=== PATIENT | female | born 2000 | race Caucasian/White ===

== ENCOUNTER 2020-06-07 00:07 | Emergency (ER) | payer SELFPAY ==
--- OUTSIDE RECORDS SUMMARY | 2020-06-07 00:09 | XMS REPORT | Continuity of Care Document ---
:2000 Author Organization [facility] t Address Formerly [facility] Edmund Reico [address] [place] [id number] Care Team Providers Name Role Phone DEMETRIO GALO Attending Clinician Unavailable Problems This patient has no known problems. Allergies, Adverse Reactions, Alerts This patient has no known allergies or adverse reactions. Medications This patient has no known medications. Procedures This patient has no known procedures. Results Test Description Test Time Test Comments Results Result Comments Source Chemistry 2018-03-16 14:02:00 Test Item Value Reference Range Interpretation Comme nts Chemistry (test code = NA-T) 137 mmol/L 138-145 L Chemistry (test code = K-T) 4.4 mmol/L 3.5-5.1 N Chemistry (test code = CL) 106 mmol/L 98-107 N Chemistry (test code = CO2) 22 mmol/L 22-29 N Chemistry (test code = ANGP) 13 mmol/L 10-20 N Chemistry (test code = BUN) 10 mg/dL 8.4-21.0 N Chemistry (test code = CREATT) 0.78 mg/dL 0.6-1.1 N Chemistry (test code = GLU-T) 100 mg/dL 70-105 N Chemistry (test code = CA) 9.6 mg/dL 7.8-10.44 N Chemistry (test code = TBILI) 0.5 mg/dL 0.2-1.2 N Chemistry (test code = TP) 8.0 g/dL 6.0-8.3 N Chemistry (test code = ALB) 4.6 g/dL 3.5-5.0 N Chemistry (test code = GLOB) 3.4 g/dL 2.4-3.5 N Chemistry (test code = AG) 1.4 g/dL 1.2-2.2 N Chemistry (test code = ALP) 54 U/L 40-150 N Chemistry (test code = AST) 18 U/L 5-30 N Chemistry (test code = ALT) 13 U/L 8-55 N [id number] 14:02:00 Test Item Value Reference Range Interpretation Comments Chemistry (test code = LIP) 20 U/L 8-78 N [id number] 13:59:00 Test Item Value Reference Range Interpretation Comments Urinalysis (test code = YELLOW Yellow UACLR) Urinalysis (test code = CLEAR Clear UACLY) Urinalysis (test code = 1.014 1.002-1.036 N SPGR) Urinalysis (test code = 8.0 5.0-9.0 N CARLOS) Urinalysis (test code = Trace Negative A UALEU) Urinalysis (test code = Negative Negative UANIT) Urinalysis (test code = 30 mg/dL Neg-Trace A PROUADIP) Urinalysis (test code = Negative mg/dL Negative GLUCU) Urinalysis (test code = Negative mg/dL Negative KETU) Urinalysis (test code = 0.2 mg/dL 0.2-1.0 UAUROB) Urinalysis (test code = Negative Negative UABIL) Urinalysis (test code = Large Negative A UABLD) Urinalysis (test code = GREATER THAN 50-TNTC 0-3 A UARBC) HPF Urinalysis (test code = None Seen HPF 0-3 UAWBC) Urinalysis (test code = None Seen HPF 0-3 UASQUAM) Urinalysis (test code = None Seen HPF None Seen UABAC) Urinalysis (test code = 0-3 HYALINE CAST LPF 0-3 Hyaline UACAST) Urine Source: Urine [id number] 13:59:00 Test Item Value Reference Range Interpretation Comments Urinalysis (test Negative Negative Method of s ensitivity- code = BHCGUT) INDETERMINANT : results should be repea rory after 48-72 hrs POS ITIVE: results may be detected as early as 1 day after the first missed period A dilute urine specimen may no t contain representativel evels of hCG.If pregnanc y is still suspected, a fi rst morning urinespecimen O R a random blood specimen should be obtainedfrom th e patient 48-72 hours lat er and re-tested. Urinalysis (test 1.014 1.002-1.036 N code = PREGUSG) [id number] 13:33:00 Test Item Value Reference Range Interpretation Comments Hematology (test code = WBCT) 12.3 thou/uL 4.8-10.8 H Hematology (test code = RBCT) 4.93 mill/uL 4.00-5.20 N Hematology (test code = HGBT) 13.7 g/dL 12.0-16.0 N Hematology (test code = HCTT) 41.1 % 36.0-47.0 N Hematology (test code = MCV) 83.4 fl 77.0-87.0 N Hematology (test code = MCH) 27.8 pg 25.0-35.0 N Hematology (test code = MCHC) 33.4 g/dL 30.0-36.0 N Hematology (test code = RDW) 12.2 % 11.5-14.5 N Hematology (test code = PLTT) 268 thou/uL 130-400 N Hematology (test code = MPV) 7.1 fL 7.4-10.4 L Hematology (test code = %NEUT) 78.4 % 31.0-61.0 H Hematology (test code = %LYMPH) 16.0 % 28.0-48.0 L Hematology (test code = %MONO) 4.6 % 0.0-4.0 H Hematology (test code = %EOS) 0.5 % 0.0-10.0 N Hematology (test code = %BASO) 0.5 % 0.0-1.0 N Hematology (test code = NEUT#) 9.6 thou/uL 1.40-6.50 H Hematology (test code = LYMPH#) 2.0 thou/uL 1.20-3.40 N Hematology (test code = MONO#) 0.6 thou/uL 0.11-0.59 H Hematology (test code = EOS#) 0.1 thou/uL 0.0-0.7 N Hematology (test code = BASO#) 0.1 thou/uL 0.0-0.2 N
[2020-06-07] MEDS ORDERED: HYDROCODONE/APAP 10/325 TAB ONE (00:36)
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
[2020-06-09 08:37] VITALS: TEMP 98.1
[2020-06-09 08:40] VITALS: BP 110/7; O2SAT 99
== END 2020-06-07 02:11 | disposition home or self-care (01) ==
LOC: ER 00:07
PROC: 2W3QX1Z Immobilization of Right Lower Leg using Splint (ICD-10-PCS; principal; 2020-06-07)
DX: S90.31XA Contusion of right foot, initial encounter (principal); W25.XXXA Contact with sharp glass, initial encounter; Y93.89 Activity, other specified; Y92.9 Unspecified place or not applicable
CPT/HCPCS: 99284

== ENCOUNTER 2020-10-08 21:53 | Emergency (ER) | payer SELFPAY ==
--- OUTSIDE RECORDS SUMMARY | 2020-10-08 21:55 | XMS REPORT | Continuity of Care Document ---
:2000 Author Organization [facility] t Address [facility] Edmund Recio [address] [place] [id number] Care Team Providers Name Role Phone DEMETRIO [...] code = ALT) 13 U/L 8-55 N [id number] 14:02:00 Test Item Value Reference Range Interpretation Comments Chemistry (test code = LIP) 20 U/L 8-78 N [id number] 13:59:00 Test Item Value Reference Range Interpretation [...] LPF 0-3 Hyaline UACAST) Urine Source: Urine [id number] 13:59:00 Test Item Value Reference Range Interpretation [...] (test 1.014 1.002-1.036 N code = PREGUSG) [id number] 13:33:00 Test Item Value Reference Range Interpretation [...]
[2020-10-08 22:48] LABS: Urine Blood NEGATIVE (NEG); Urine Glucose NEGATIVE (NEG); Urine Protein NEGATIVE (NEG); Urine Specific Gravity 1.025 (1.005-1.030)
[2020-10-08 22:48] LABS: Urine Specific Gravity 1.025 (1.005-1.030)
[2020-10-08 23:18] LABS: Urine Amorphous Sediment 4+ /HPF (NONE SEEN); Urine Bacteria <20 /HPF (<20); Urine RBC NONE SEEN /HPF (NONE SEEN); Urine Urothelial Cells <5 /HPF (NONE SEEN)
--- NOTE | 2020-10-08 23:48 | EDPHYS ---
Physician Documentation [facility] Name: Carolina Menendez Age: 20 yrs Sex: Female : 2000 Arrival Date: 10/08/2020 Time: 21:57 Bed 2 Private MD: ED Physician Jacob Little HPI: 10/09 06:45 This 20 yrs old Female presents to ER via Wheelchair with complaints of Flank tw4 Pain. 06:45 The patient complains of pain in the right mid back. The pain does not radiate. Onset: tw4 The symptoms/episode began/occurred today. Modifying factors: The symptoms are alleviated by nothing. the symptoms are aggravated by nothing. The patient has not experienced similar symptoms in the past. 06:46 Severity of pain: At its worst the pain was moderate in the emergency department the tw4 pain has resolved. 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 - Social history:: Smoking status: Patient/guardian denies using tobacco, the patient reports quitting approximately 1 years ago. ROS: 10/09 06:45 Constitutional: Negative for fever, chills, and weight loss, Eyes: Negative for injury, tw4 pain, redness, and discharge, Cardiovascular: Negative for chest pain, palpitations, and edema, Respiratory: Negative for shortness of breath, cough, wheezing, and pleuritic chest pain, Abdomen/GI: Negative for abdominal pain, nausea, vomiting, diarrhea, and constipation, MS/Extremity: Negative for injury and deformity, Skin: Negative for injury, rash, and discoloration, Neuro: Negative for headache, weakness, numbness, tingling, and seizure. Back: Positive for pain at rest, pain with movement, flank pain, radiated pain. Exam: 06:45 Constitutional: This is a well developed, well nourished patient who is awake, alert, tw4 and in no acute distress. Head/Face: Normocephalic, atraumatic. Chest/axilla: Normal chest wall appearance and motion. Nontender with no deformity. No lesions are appreciated. Cardiovascular: Regular rate and rhythm with a normal S1 and S2. No gallops, murmurs, or rubs. Normal PMI, no JVD. No pulse deficits. Respiratory: Lungs have equal breath sounds bilaterally, clear to auscultation and percussion. No rales, rhonchi or wheezes noted. No increased work of breathing, no retractions or nasal flaring. Abdomen/GI: Soft, non-tender, with normal bowel sounds. No distension or tympany. No guarding or rebound. No evidence of tenderness throughout. Back: No spinal tenderness. No costovertebral tenderness. Full range of motion. Skin: Warm, dry with normal turgor. Normal color with no rashes, no lesions, and no evidence of cellulitis. MS/ Extremity: Pulses equal, no cyanosis. Neurovascular intact. Full, normal range of motion. Neuro: Awake and alert, GCS 15, oriented to person, place, time, and situation. Cranial nerves II-XII grossly intact. Motor strength 5/5 in all extremities. Sensory grossly intact. Cerebellar exam normal. Normal gait. Vital Signs: 10/08 22:00 BP 150 / 91; Pulse 88; Resp 20; Temp 97.8; Pulse Ox 100% ; Weight 81.19 kg; Height 5 ll1 ft. 3 in. (160.02 cm); Pain 10/10; 23:32 BP 105 / 74; Pulse 80; Resp 16; Pulse Ox 99% ; Pain 0/10; rr5 23:54 BP 123 / 85; Pulse 89; Resp 19; Pulse Ox 99% ; rr5 22:00 Body Mass Index 31.71 (81.19 kg, 160.02 cm) ll1 MDM: 22:56 Patient medically screened. tw4 10/09 06:46 Differential diagnosis: nephrolithiasis, pyelonephritis. Data reviewed: vital signs, tw4 nurses notes. Data interpreted: Pulse oximetry: Interpretation: normal. Special discussion: I discussed with the patient/guardian in detail that at this point there is no indication for admission to the hospital. It is understood, however, that if the symptoms persist or worsen the patient needs to return immediately for re-evaluation. 10/08 22:27 Order name: Urine Microscopic Only; Complete Time: 23:22 tw4 10/08 22:37 Order name: Urine Dipstick--Ancillary (enter results) 4 01/03 22:27 Order name: Urine Dipstick-Ancillary (obtain specimen); Complete Time: 22:36 tw4 10/08 22:27 Order name: Urine Test (obtain specimen); Complete Time: 22:36 tw4 10/08 22:38 Order name: Urine --Ancillary (enter results) ds4 Administered Medications: 10/08 22:53 CANCELLED (wrong entry): Versed 2 mg IVP once rr5 Disposition: 10/08/20 23:47 Discharged to Home. Impression: Low back pain. - Condition is Stable. - Discharge Instructions: Back Pain, Adult, Pain Without a Known Cause. - Prescriptions for Ibuprofen 800 mg Oral Tablet - take 1 tablet by ORAL route every 8 hours As needed take with food; 30 tablet. - Medication Reconciliation Form, Thank You Letter, Antibiotic Education, Prescription Opioid Use form. - Follow up: Private Physician; When: Upon discharge from the Emergency Department; Reason: Recheck today's complaints, Continuance of care, Re-evaluation by your physician. - Problem is new. - Symptoms have improved. Signatures: Dispatcher [employer] EDMS Nakita Graham RN RN lp1 Jacob Little MD MD tw4 Ibrahima Resendiz RN RN rr5 Aravind Anderson RN RN ll1 Corrections: (The following items were deleted from the chart) 22:53 22:52 Versed 2 mg IVP once ordered. rr5 rr5 23:59 23:47 10/08/2020 23:47 Discharged to Home. Impression: Low back pain. Condition is lp1 Stable. Forms are Medication Reconciliation Form, Thank You Letter, Antibiotic Education, Prescription Opioid Use. Follow up: Private Physician; When: Upon discharge from the Emergency Department; Reason: Recheck today's complaints, Continuance of care, Re-evaluation by your physician. Problem is new. Symptoms have improved. tw4
--- NOTE | 2020-10-08 23:48 | ER ---
Nurse's Notes [facility] Name: Carolina Menendez Age: 20 yrs Sex: Female : 2000 Arrival Date: 10/08/2020 Time: 21:57 Bed 2 Private MD: Diagnosis: Low back pain Presentation: 10/08 22:00 Chief complaint: Patient states: L flank pain for 1 day, since 2100. Denies N/V/D. No ll1 fever. Coronavirus screen: Client denies travel out of the [place] in the last 14 days. At this time, the client does not indicate any symptoms associated with coronavirus-19. Ebola Screen: Patient denies travel to an Ebola-affected area in the 21 days before illness onset. Initial Sepsis Screen: Does the patient meet any 2 criteria? No. Patient's initial sepsis screen is negative. Does the patient have a suspected source of infection? Yes: Other: flank pain, r/o kidney stone. Risk Assessment: Do you want to hurt yourself or someone else? Patient reports no desire to harm self or others. Onset of symptoms was October 08, 2020. 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 - Social history:: Smoking status: Patient/guardian denies using tobacco, the patient reports quitting approximately 1 years ago. Screenin:00 Abuse screen: Denies threats or abuse. Denies injuries from another. Nutritional rr5 screening: No deficits noted. Tuberculosis screening: No symptoms or risk factors identified. Fall Risk None identified. Total Oneill Fall Scale indicates No Risk (0-24 pts). Assessment: 22:40 General: Appears in no apparent distress. comfortable, Behavior is calm, cooperative, rr5 appropriate for age. 22:40 Pain: Denies pain. Neuro: Level of Consciousness is awake, alert, obeys commands, rr5 Oriented to person, place, time, situation. Cardiovascular: Capillary refill < 3 seconds Patient's skin is warm and dry. Respiratory: Airway is patent Respiratory effort is even, unlabored, Respiratory pattern is regular, symmetrical. GI: No signs and/or symptoms were reported involving the gastrointestinal system. : Reports pain in left flank(s). EENT: No signs and/or symptoms were reported regarding the EENT system. Derm: Skin is intact, is healthy with good turgor, Skin temperature is warm. Musculoskeletal: Circulation, motion, and sensation intact. Capillary refill < 3 seconds. 23:54 Reassessment: Patient appears in no apparent distress at this time. Patient is alert, rr5 oriented x 3, equal unlabored respirations, skin warm/dry/pink. discharge instruction given and explained without complaints made Patient denies pain at this time. Patient states feeling better. Patient states symptoms have improved. Vital Signs: 22:00 BP 150 / 91; Pulse 88; Resp 20; Temp 97.8; Pulse Ox 100% ; Weight 81.19 kg; Height 5 ll1 ft. 3 in. (160.02 cm); Pain 10/10; 23:32 BP 105 / 74; Pulse 80; Resp 16; Pulse Ox 99% ; Pain 0/10; rr5 23:54 BP 123 / 85; Pulse 89; Resp 19; Pulse Ox 99% ; rr5 22:00 Body Mass Index 31.71 (81.19 kg, 160.02 cm) ll1 ED Course: 21:57 Patient arrived in ED. ag3 22:02 Triage completed. ll1 22:03 Arm band placed on. ll1 22:26 Jacob Little MD is Attending Physician. tw4 22:40 Patient has correct armband on for positive identification. Bed in low position. Call rr5 light in reach. 22:42 Ibrahima Resendiz RN is Primary Nurse. rr5 23:10 Urine Microscopic Only Sent. ds4 23:33 No provider procedures requiring assistance completed. Patient did not have IV access rr5 during this emergency room visit. Administered Medications: 22:53 CANCELLED (wrong entry): Versed 2 mg IVP once rr5 Outcome: 23:47 Discharge ordered by . tw4 23:55 Discharged to home ambulatory. rr5 23:55 Condition: stable 23:55 Discharge instructions given to patient, Instructed on discharge instructions, follow up and referral plans. medication usage, Demonstrated understanding of instructions, follow-up care, medications, Prescriptions given X 1. 23:59 Patient left the ED. lp1 Signatures: Nakita Graham, RN RN lp1 Brendan Rivera ds4 Jacob Little MD MD tw4 Katherine Bryan ag3 Ibrahima Resendiz, RN RN rr5 Aravind Anderson RN RN ll1
[2020-10-09 00:57] VITALS: TEMP 97.8
[2020-10-09 00:58] VITALS: O2SAT 99
[2020-10-09 01:00] VITALS: BP 123/85
== END 2020-10-08 23:59 | disposition home or self-care (01) ==
LOC: ER 21:53
DX: M54.5 Low back pain (principal)
CPT/HCPCS: 81003; 81015; 81025; 99283